=== PATIENT | male | born 2000 | race Caucasian/White ===

== ENCOUNTER → 2021-04-29 | Day surgery (SDC) | payer OTHER | END | disposition home or self-care (01) | LOC: MSO 07:24 | DX: K21.9 Gastro-esophageal reflux disease without esophagitis (principal); R09.89 Other specified symptoms and signs involving the circulatory and respiratory systems; Z87.891 Personal history of nicotine dependence | CPT/HCPCS: 00731; J2704; J7120 ==

== ENCOUNTER → 2021-09-01 | Outpatient (CLI) | payer OTHER | LOC: RAD 09:45 | DX: N50.811 Right testicular pain (principal) ==